=== PATIENT | female | born 2000 | race Caucasian/White ===

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

== ENCOUNTER 2024-10-22 21:11 | Outpatient (REF) | payer MEDICAID, SELFPAY ==
[2024-10-24 13:25] LABS: GC Result Negative (Negative)
[2024-10-24 13:46] LABS: Specimen Description VAGINAL
[2024-10-24 13:47] LABS: Chlamydia Result Positive (Negative)
== END 2024-10-22 21:12 | disposition home or self-care (01) ==
LOC: LBN 21:11
PROVIDERS: Visit Provider Obstetrics & Gynecology
DX: N89.8 Other specified noninflammatory disorders of vagina (principal); R30.0 Dysuria; Z30.09 Encounter for other general counseling and advice on contraception; Z20.2 Contact with and (suspected) exposure to infections with a predominantly sexual mode of transmission
CPT/HCPCS: 87491; 87591; 87086

== ENCOUNTER 2024-11-20 21:52 | Outpatient (REF) | payer MEDICAID, SELFPAY ==
[2024-11-24 12:48] LABS: Chlamydia Result Negative (Negative); GC Result Negative (Negative)
== END 2024-11-20 21:53 | disposition home or self-care (01) ==
LOC: LBN 21:52
PROVIDERS: Visit Provider Obstetrics & Gynecology
DX: Z86.19 Personal history of other infectious and parasitic diseases (principal); Z12.4 Encounter for screening for malignant neoplasm of cervix
CPT/HCPCS: 87491; 87591